=== PATIENT | female | born 1970 | race Caucasian/White ===

== ENCOUNTER 2016-08-29 01:43 | Emergency (ER) | payer OTHER ==
[~2016-08-29] VITALS: Ht 162.6 cm; Wt 86.2 kg
--- NOTE | ~2016-08-29 | EKG ---
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
[~2016-08-29 01:43] MED LIST: ACETAMINOPHEN-1 EAC1 PO; AMOXICILLIN 50500 MG; TRINATE TABLET1 TAB
[2016-08-29] MEDS ORDERED: NORCO 5-325 TA1 EACH PO (02:02)
[2016-08-29] MEDS ORDERED: PENICILLIN VK500 M1 PO (02:02)
[2016-08-29 02:49] VITALS: BP 137/94
== END 2016-08-29 02:50 | disposition home or self-care (01) ==
LOC: ER 01:43
DX: K02.9 Dental caries, unspecified (principal)